=== PATIENT | male | born 1990 | race Caucasian/White ===

== ENCOUNTER → 2023-11-26 | Outpatient (CLI) | payer OTHER | LOC: LAB 18:20 | DX: Z20.2 Contact with and (suspected) exposure to infections with a predominantly sexual mode of transmission (principal) ==

== ENCOUNTER → 2024-02-10 | Outpatient (CLI) | payer OTHER ==
[2024-02-10 15:37] LABS: EOS # 0.21 K/mm3 (0.04-0.40); EOS % 2.2 % (0.0-4.0); HEMATOCRIT 45.4 % (42.0-52.0); HEMOGLOBIN 15.1 g/dL (13.5-18.0); MEAN CELL VOLUME 87 fl (78-100); MEAN CORPUSCULAR HEMOGLOBIN 29 pg (27-31); MEAN CORPUSCULAR HGB CONC 33 g/dL (33-37); MONO # 0.91 K/mm3 (0.20-0.80); NEU # 6.11 K/mm3 (1.40-6.50); PLATELET COUNT 257 K/mm3 (130-400); RED BLOOD COUNT 5.23 M/mm3 (4.20-5.60); RED CELL DISTRIBUTION WIDTH 12.6 % (11.5-14.5); WHITE BLOOD COUNT 9.5 K/mm3 (4.8-10.8)
[2024-02-10 16:28] LABS: ALBUMIN 4.5 g/dL (3.5-5.0)
[2024-02-10 16:30] LABS: TOTAL PROTEIN 7.6 g/dL (6.4-8.3)
[2024-02-10 16:32] LABS: TOTAL BILIRUBIN 0.4 mg/dL (0.2-1.2)
[2024-02-10 23:25] LABS: FOLLICLE STIMULATING HORMONE 3.2 mIU/mL (1.0-12.0); LUTENIZING HORMONE 2.6 mIU/mL (0.6-12.1); PROLACTIN AMS 7.6 ng/mL (3.5-19.4); T3 FREE 3.6 pg/mL (1.7-3.7)
== END ==
LOC: LAB 15:21
PROVIDERS: Family Medicine
DX: I10 Essential (primary) hypertension (principal); R00.0 Tachycardia, unspecified